=== PATIENT | female | born 1930 | race Caucasian/White ===

== ENCOUNTER 2018-01-24 15:30 | Emergency (ER) | payer OTHER, BC ==
--- NOTE | 2018-01-24 15:42 | PDOC ---
History of Present Illness - History of Present Illness Initial Comments: 01/24/18 16:34 The patient is a 87 year old female with a significant past medical history of a left eye trabeculectomy and HTN who presents to the ER s/p fall earlier today. The patient states she was leaving physical therapy and was able to cross the street before feeling dizzy and subsequently falling. Patient has a laceration to the right eyebrow with significant swelling and bruising to the right eye. Laceration is actively bleeding but well controlled. Patient denies any changes in her vision. Patient denies any loss of consciousness. A passerby helped the patient stand up. Patient denied to go to ER via ambulance and decided to take a cab to the urgent car instead. At the urgent care, the patient was told to go to the ER for further imaging. The patient denies chest pain, shortness of breath, headache, and dizziness. Denies fever, chills, nausea, vomit, diarrhea, and constipation. Denies dysuria, frequency, urgency, and hematuria. Allergies: bacitracin, sulfa, warfarin Past surgical history: left eye trabeculectomy Social history: None reported. <Sheila Krishnamurthy - Last Filed: 01/24/18 18:18> - General History Source: Patient Exam Limitations: No Limitations <Sara Monreal - Last Filed: 01/27/18 12:02> - General Chief Complaint: Injury Stated Complaint: HEAD INJURY Time Seen by Provider: 01/24/18 15:36 Past History <Sheila Krishnamurthy - Last Filed: 01/24/18 18:18> <Sara Monreal - Last Filed: 01/27/18 12:02> - Past Medical History Allergies/Adverse Reactions: Allergies Allergy/AdvReac Type Severity Reaction Status Date / Time bacitracin Allergy Verified 01/24/18 15:35 Sulfa (Sulfonamide Allergy Verified 01/24/18 15:35 Antibiotics) warfarin [From Coumadin] Allergy Verified 01/24/18 15:35 Home Medications: Ambulatory Orders Acetylcysteine [Nac] 600 mg PO BID 01/24/18 Ascorbic Acid [Vitamin C] 1,400 mg PO DAILY 01/24/18 Azithromycin 250 mg PO ASDIR 01/24/18 Bilberry 100 mg PO BID 01/24/18 Biotin 5,000 mcg PO DAILY 01/24/18 Brimonidine Tartrate [Alphagan P 0.1% -] 1 drop OP BID 01/24/18 Bromfenac Sodium [Prolensa] 1 ml OP DAILY 01/24/18 Jefferson/D3/Mag11/Zinc/Induction Machine Operator/Eliu/Bor [Caltrate 600+D Plus Tablet] 1 each PO DAILY 06/12 Cephalexin [Keflex] 250 mg PO TID #15 capsule 01/24/18 Cyclosporine [Restasis] 1 each OP BID 01/24/18 Dorzolamide HCl/Pf [Dorzolamide 2% Eye Drop] 1 drop OP TID 01/24/18 Estradiol [Estrace] 42.5 gm VG ASDIR 01/24/18 Fluticasone/Salmeterol [Advair 250-50 Diskus] 1 each IH BID 01/24/18 Furosemide 20 mg PO DAILY 01/24/18 Losartan Potassium 25 mg PO DAILY 01/24/18 Loteprednol Etabonate [Lotemax] 1 drop OP TID 01/24/18 Multivit-Min/FA/Lycopen/Lutein [Centrum Silver Tablet] 1 each PO DAILY 01/24/18 Prednisolone 1% Ophthalmic [Pred Forte 1% -] 1 drop OP BID 01/24/18 Simvastatin 20 mg PO DAILY 01/24/18 Timolol 0.5% [Timoptic 0.5%] 1 drop OP DAILY 01/24/18 Tiotropium [place] [Spiriva] 2 inh PO DAILY 01/24/18 Tramadol HCl 50 mg PO BID 01/24/18 Verapamil HCl [Calan Sr] 240 mg PO DAILY 01/24/18 Review of Systems - Review of Systems Able to Perform ROS?: Yes Comments:: 01/24/18 16:40 ADULT ROS GENERAL/CONSTITUTIONAL: No fever or chills. No weakness. HEAD, EYES, EARS, NOSE AND THROAT: No change in vision. No ear pain or discharge. No sore throat. (+) Laceration to the right eye. CARDIOVASCULAR: No chest pain or shortness of breath. RESPIRATORY: No cough, wheezing, or hemoptysis. GASTROINTESTINAL: No nausea, vomiting, diarrhea or constipation. GENITOURINARY: No dysuria, frequency, or change in urination. MUSCULOSKELETAL: No joint or muscle swelling or pain. No neck or back pain. SKIN: No rash NEUROLOGIC: No headache, vertigo, loss of consciousness, or change in strength/ sensation. ENDOCRINE: No increased thirst. No abnormal weight change. HEMATOLOGIC/LYMPHATIC: No anemia, easy bleeding, or history of blood clots. ALLERGIC/IMMUNOLOGIC: No hives or skin allergy. <Sheila Krishnamurthy - Last Filed: 01/24/18 18:18> *Physical Exam - Vital Signs Last Vital Signs Temp Pulse Resp BP Pulse Ox 98.3 F 98 H 18 178/114 H 100 01/24/18 15:30 01/24/18 15:30 01/24/18 15:30 01/24/18 15:30 01/24/18 15:30 - Physical Exam Comments: 01/24/18 16:30 ADULT PE GENERAL: The patient is in no acute distress. HEAD: Normal with no signs of trauma. EYES: Right pupil- PERRLA, EOMI, sclera anicteric, conjunctiva clear. No subconjunctival haemorrhage. No hyphema. ENT: Ears normal, nares patent, oropharynx clear without exudates. Moist mucous membranes. NECK: Normal range of motion, supple without lymphadenopathy, JVD, or masses. LUNGS: Breath sounds equal, clear to auscultation bilaterally. No wheezes, and no crackles. HEART:Regular rate and rhythm, normal S1 and S2 without murmur, rub or gallop. ABDOMEN: Soft, nontender, normoactive bowel sounds. No guarding, no rebound. No masses palpable. Pelvis is stable. BACK: No C-spine tenderness. Normal range of motion. EXTREMITIES: Normal range of motion, no edema. No clubbing or cyanosis. No erythema, or tenderness. NEUROLOGICAL: Cranial nerves II through XII grossly intact. Normal speech. No focal neurological deficits. MUSCULOSKELETAL: Back non-tender to palpation, no CVA tenderness SKIN: Warm, Dry, normal turgor, no rashes noted. (+) Laceration to the right eyebrow with severe right facial swelling and bruising. <Sheila Krishnamurthy - Last Filed: 01/24/18 18:18> Procedures - Laceration/Wound Repair Right Face Wound Length: to 2.5 cm Wound Explored: no foreign body present Wound's Depth, Shape: into muscle, irregular, flap, stellate Irrigated w/ Saline: Yes Betadine Prep: No (chlorhexidine) Anesthesia: 1% Lidocaine Amount of Anesthetic (ccs): 3 Wound Debrided: minimal Wound Repaired With: Sutures Suture Size/Type: 5:0 Number of Sutures: 3 Layer Closure: No Sterile Dressing Applied: Yes (Band-Aid) Splint Applied: No Sling Applied: No <Sara Monreal - Last Filed: 01/27/18 12:02> ED Treatment Course - LABORATORY CBC & Chemistry Diagram: 01/24/18 17:00 01/24/18 17:00 <Sheila Krishnamurthy - Last Filed: 01/24/18 18:18> - LABORATORY CBC & Chemistry Diagram: 01/24/18 17:00 01/24/18 17:00 <Sara Monreal - Last Filed: 01/27/18 12:02> Medical Decision Making - Medical Decision Making S/p fall from standing height Pt stood up very rapidly and became dizzy She walked across the street and fell No LOC No amnesia No focal weakness or numbness No chest pain Pt stayed on the ground and was assisted to standing EMS was called, pt refused to go to the ER She chose rather to go to the Urgent care via cab Once at the urgent care, she was referred to the ER Pt took a cab from [place] in [facility] to [place] EKG: NSR rate of 96 bpm, LAD, LVH, RBBB 01/24/18 17:56 Laboratory Tests 01/24/18 01/24/18 01/24/18 17:00 17:00 17:00 WBC 9.4 Hgb 13.6 Hct 40.5 Plt Count 269 BUN 10 Creatinine < 0.6 L Creatine Kinase 113 Troponin I < 0.03 CT head- no ICH CT C spine - central canal stenosis, no fracture or dislocation Laceration repaired - non linear, stellate defect, devitalized tissue debrided, wound re approximated with 3 sutures Last tetanus 2011 Pt with no extremity deformities 01/24/18 17:58 01/24/18 18:03 Pt insistent on leaving the hospital Pt family bedside and will take her home Pt ambulatory out of the ER with a steady gait <Sara Monreal - Last Filed: 01/27/18 12:02> *DC/Admit/Observation/Transfer - Attestations Scribe Attestion: 01/24/18 16:42 Documentation prepared by Sheila Krishnamurthy, acting as medical services assistant for Sara Monreal MD. <Sheila Krishnamurthy - Last Filed: 01/24/18 18:18> - Discharge Dispostion Decision to Admit order: No <Sara Monreal - Last Filed: 01/27/18 12:02> Diagnosis at time of Disposition: Laceration Fall from standing Qualifiers: Encounter type: initial encounter Qualified Code(s): W19.XXXA - Unspecified fall, initial encounter Head trauma Qualifiers: Encounter type: initial encounter Qualified Code(s): S09.90XA - Unspecified injury of head, initial encounter - Discharge Dispostion Disposition: HOME Condition at time of disposition: Stable - Prescriptions Prescriptions: Cephalexin [Keflex] 250 mg PO TID #15 capsule - Patient Instructions Printed Discharge Instructions: DI for Suture Removal, How to Prevent Falls, DI for Closed Head Injury Additional Instructions: Ms Jean-Baptiste Thank you for coming in to the ER today I am sorry that you fell after going back to physical therapy Please try to avoid standing up rapidly. Rather, when you get up from a reclined position, stay in a seated position for a few minutes, then stand If you feel dizzy, please sit back down If you develop chest pain, palpitations, shortness of breath, please return to the ER If after getting home, you feel as though you can't take care of yourself, please feel free to return to the ER If you notice any new injuries, not appreciated today, please return to the ER You can take tylenol for pain SUTURE REMOVAL: 7- 10 days do not get sutures wet for 48 hours After that, you can wash the area You can apply an antibiotic ointment (if you have one that you are not allergic/ sensitive to) Please take antibiotics as prescribed If you notice redness around the wound, pus, fevers or chills, come back to the ER
[2018-01-24 15:55] VITALS: PULSE 98; TEMP 98.3; BMI 24.3
[2018-01-24 17:35] LABS: BASO % 0.2 % (0-2.0); MEAN PLT VOLUME 8.9 fl (7.5-11.1)
[2018-01-24 17:40] LABS: ALBUMIN 3.7 g/dl (3.5-5.0); ALK PHOS 56 U/L (32-92); ANION GAP 6 MMOL/L (8-16); BILIRUBIN,TOTAL 0.3 mg/dl (0.2-1.0); BLOOD UREA NITROGEN 10 mg/dl (7-18); CALCIUM 8.5 mg/dl (8.4-10.2); CHLORIDE 98 mmol/L (98-107); CO2 27 mmol/L (22-28); GLUCOSE,RANDOM 108 mg/dl (74-106); POTASSIUM 3.5 mmol/L (3.5-5.1); SGOT/AST 20 U/L (10-42); SGPT/ALT 20 U/L (10-40); SODIUM 131 mmol/L (136-145); TOT PROT 6.6 g/dl (6.4-8.3)
[2018-01-24 17:41] LABS: HEMATOCRIT 40.5 % (32.4-45.2); HEMOGLOBIN 13.6 GM/dl (10.7-15.3); LYMPH % 10.9 % (8-40); MCH 30.6 pg (25.7-33.7); MCHC 33.5 g/dl (32.0-36.0); MEAN CELL VOLUME 91.3 fl (80-96); MONO % 7.7 % (3.8-10.2); NEUT % 80.2 % (42.8-82.8); PLATELET COUNT 269 K/MM3 (134-434); RBC 4.44 M/mm3 (3.60-5.2); RDW 12.9 % (11.6-15.6); WHITE BLOOD COUNT 9.4 K/mm3 (4.0-10.8)
[2018-01-24 17:42] LABS: CREATININE < 0.6 mg/dl (0.6-1.3)
[2018-01-24 18:23] VITALS: BP 158/77
--- NOTE | 2018-01-25 10:03 | EKG ---
Test Reason : Blood Pressure : / mmHG Vent. 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
== END 2018-01-24 18:35 | disposition home or self-care (01) ==
LOC: FER 15:30
PROC: 0HQ1XZZ Repair Face Skin, External Approach (ICD-10-PCS; principal; 2018-01-24)
DX: S01.111A Laceration without foreign body of right eyelid and periocular area, initial encounter (principal); S09.90XA Unspecified injury of head, initial encounter; I10 Essential (primary) hypertension; W18.39XA Other fall on same level, initial encounter; Y93.89 Activity, other specified; Y92.410 Unspecified street and highway as the place of occurrence of the external cause
CPT/HCPCS: 12011; 36415; 70450-TC; 70486-TC; 72125-TC; 80053; 82550; 84484; 85025; 93005; 99284-25